=== PATIENT | female | born 1985 | race Caucasian/White ===

== ENCOUNTER 2024-02-06 05:55 | Day surgery (SDC) | payer OTHER ==
[~2024-02-06] VITALS: Ht 154.9 cm; Wt 122.5 kg
[2024-02-06 06:35] LABS: HCG,QUAL RESULT NEGATIVE (NEGATIVE)
[2024-02-06] MEDS ORDERED: SIMETHICONE 40 MG/0.6 ML ML ONE (06:54)
[2024-02-06] MEDS ORDERED: MIDAZOLAM HCL 5 MG/5 ML VIAL ONE (06:55)
[2024-02-06] MEDS ORDERED: MEPERIDINE 100 MG INJ. 100 MG/ML VIAL ONE (06:55)
[2024-02-06 06:59] VITALS: O2SAT 98
[2024-02-06 13:37] VITALS: BP_SYST 128; PULSE 78; RESP 17; TEMP 97.6
== END 2024-02-06 10:52 | disposition home or self-care (01) ==
LOC: SMU 05:55 → SDS 05:55
PROVIDERS: ATTEND Internal Medicine Gastroenterology
DX: D50.8 Other iron deficiency anemias (principal); K29.50 Unspecified chronic gastritis without bleeding; K63.5 Polyp of colon; R14.0 Abdominal distension (gaseous); K64.8 Other hemorrhoids; E03.9 Hypothyroidism, unspecified; Z98.891 History of uterine scar from previous surgery; Z79.899 Other long term (current) drug therapy; Z91.011 Allergy to milk products; Z80.0 Family history of malignant neoplasm of digestive organs
CPT/HCPCS: 45385; 43239; 99152; 87081; 84703; 36415; 88305; 88312; 88313; 99153; G0378; J2250; J2175